=== PATIENT | male | born 1940 | race Caucasian/White ===

== ENCOUNTER 2017-09-26 08:04 | Outpatient (CLI) | payer MEDICARE ==
--- NOTE | 2017-09-26 13:12 | NM ---
NUCLEAR MEDICINE CARDIAC PERFUSION EXAMINATION WITH EJECTION FRACTION: HISTORY: A 77-year-old male with shortness of breath and chest pain. TECHNIQUE: A single-day nuclear medicine cardiac perfusion examination was performed. Rest images were obtained using 10 mCi of Technetium 99m sestamibi. Stress images were obtained using 30.8 mCi of Technetium 99m sestamibi and adenosine. FINDINGS: Tomographic images showed no fixed or reversible perfusion defects. Gated images show normal wall mo tion with an ejection fraction of 64%. EDV is 107 mL. LHR is 0.3. TID is 1.1. IMPRESSION: No evidence of ischemia. POS: [facility]
== END 2017-09-26 08:05 | disposition home or self-care (01) ==
LOC: NM 08:04
PROVIDERS: ATTEND Internal Medicine
DX: R06.02 Shortness of breath (principal)
CPT/HCPCS: 78452; 93017; A9500